=== PATIENT | female | born 1995 | race American Indian/Alaskan Native ===

== ENCOUNTER 2017-11-10 13:23 | Emergency (ER) | payer MEDICAID ==
[2017-11-10 13:53] VITALS: BP 94/55
[2017-11-10] MEDS ORDERED: BENADRYL PO ONE (17:50)
[2017-11-10] MEDS ORDERED: FIORICET PO ONE (17:50)
[2017-11-10] MEDS ORDERED: REGLAN PO ONE (17:50)
--- NOTE | 2017-11-10 17:54 | Emergency Department Report ---
Blank Doc - Documentation Documentation: Patient presents to the emergency department with multiple complaints. Patient states that she's had abdominal pain for the last couple days and points to epigastric region for location. She denies anything making the pain better or worse. She also complains of a diffuse headache and states she has a history of migraines and this is not the worse headache of her life. She also complains of her asthma flaring up. Patient is mildly tender to palpation epigastric region she does have plaque-like lesions along the creases of her elbows and wrists. Labs will be obtained and headache would be treated. Care will be turned over to the Mid level provider within the available for consultation
[2017-11-10 18:23] LABS: Basophils % (Auto) 0.6 % (0.0-1.8); Eosinophils # (Auto) 0.1 K/mm3 (0.0-0.4); Eosinophils % (Auto) 1.6 % (0.0-4.3); Hemoglobin 13.6 gm/dl (10.1-14.3); Lymphocytes # (Auto) 2.6 K/mm3 (1.2-5.4); Lymphocytes % (Auto) 47.1 % (13.4-35.0); Mean Corpuscular HGB Conc 33 % (30-34); Mean Corpuscular Hemoglobin 30 pg (28-32); Mean Corpuscular Volume 91 fl (79-97); Monocytes # (Auto) 0.5 K/mm3 (0.0-0.8); Monocytes % (Auto) 8.5 % (0.0-7.3); Platelet Count 215 K/mm3 (140-440); Red Blood Count 4.53 M/mm3 (3.65-5.03); Red Cell Distribution Width 12.9 % (13.2-15.2)
[2017-11-10 18:39] LABS: Alanine Aminotransferase 7 units/L (7-56); Albumin 4.5 g/dL (3.9-5); BUN/Creatinine Ratio 14; Blood Urea Nitrogen 7 mg/dL (7-17); Calcium 9.2 mg/dL (8.4-10.2); Hemolysis Index 11; Lipase 34 units/L (13-60)
[2017-11-10 18:55] LABS: Bilirubin,Urine NEG (Negative); Blood,Urine NEG (Negative); Color,Urine Yellow (Yellow); Mucus,Urine 3+ /HPF; Protein,Urine <15 mg/dL mg/dL (Negative)
--- NOTE | 2017-11-10 20:25 | XRay Report ---
FINAL REPORT EXAM: XR ABD SERIES W CXR 1V HISTORY: ab pain history of Merina placement 5 years ago but was recently told was not present. TECHNIQUE: PA view of the chest and supine and erect views of the abdomen PRIORS: None. FINDINGS: Chest: Lungs are clear. Trachea is midline. Cardiac and mediastinal silhouettes are unremarkable. Bony structures are intact. Bilateral nipple bars are in place. Abdomen: The bowel gas pattern is nonspecific. No free air is identified. Soft tissues have no evidence for mass shadows or calcifications. There is a T-shaped IUD noted to the left of midline. There is a vertical midline linear metallic focus overlying the L5 vertebral body. This should be correlated with possibility of a navel piercing. The bony structures are intact. IMPRESSION: 1. No acute cardiopulmonary process seen. 2. Nonspecific, nonobstructive bowel gas pattern with no acute process noted. 3. T-shaped IUD is present in the left pelvis. 4. Vertical linear metallic focus overlying L5. Correlation with a history of navel piercing is needed for correlation. Otherwise this is abnormal 5.. Bilateral nipple bars in place.
--- NOTE | 2017-11-10 23:08 | Emergency Department Report ---
ED General Adult HPI - General Chief complaint: Skin Rash Stated complaint: ECZEMA/CHEST PAINS Time Seen by Provider: 11/10/17 17:32 Source: patient Mode of arrival: Ambulatory Limitations: No Limitations - History of Present Illness Initial comments: deb presents to the emergency department with multiple complaints. Patient states that she's had abdominal pain for the last couple days and points to epigastric region for location. She denies anything making the pain better or worse. She also complains of a diffuse headache and states she has a history of migraines and this is not the worse headache of her life. She also complains of her asthma flaring up. Patient is mildly tender to palpation epigastric region she does have plaque-like lesions along the creases of her elbows and wrists. Labs will be obtained and headache would be treated. Care will be turned over to the Mid level provider within the available for consultation Onset/Timin -: month(s) Location: abdomen Radiation: non-radiation Severity scale (0 -10): 3 Quality: aching Consistency: intermittent Improves with: movement Worsens with: none Associated Symptoms: denies: confusion, chest pain, cough, diaphoresis, fever/ chills, headaches, loss of appetite, malaise, nausea/vomiting, rash, seizure, shortness of breath, syncope, weakness Treatments Prior to Arrival: none - Related Data Previous Rx's Medication Instructions Recorded Last Taken Type Triamcinolone 0.1% [Kenalog 0.1% 1 applic TP TID #1 tube 10/31/14 Unknown Rx OINT] cephALEXin [Keflex] 500 mg PO Q6HR #40 capsule 10/31/14 Unknown Rx predniSONE [Deltasone] 20 mg PO BID #10 tab 10/31/14 Unknown Rx Sulfamethoxazole/Trimethoprim 1 each PO BID #20 tablet 01/01/15 Unknown Rx [Bactrim DS TAB] Naproxen [Naprosyn] 500 mg PO BID PRN #30 tablet 11/10/17 Unknown Rx Triamcinolone Acetonide 15 gm TP BID 14 Days #1 tube 11/10/17 Unknown Rx [Triamcinolone Acetonide Oint 0.5%] diphenhydrAMINE [Benadryl CAP] 25 mg PO Q8HR PRN #30 capsule 11/10/17 Unknown Rx predniSONE [Deltasone] 20 mg PO QDAY #5 tab 11/10/17 Unknown Rx Allergies Allergy/AdvReac Type Severity Reaction Status Date / Time No Known Allergies Allergy Verified 07/16/13 11:13 ED Review of Systems ROS: Stated complaint: ECZEMA/CHEST PAINS Other details as noted in HPI Constitutional: denies: chills, fever Eyes: denies: eye pain, eye discharge, vision change ENT: denies: ear pain, throat pain Respiratory: denies: cough, shortness of breath, wheezing Cardiovascular: denies: chest pain, palpitations Endocrine: no symptoms reported Gastrointestinal: denies: abdominal pain, nausea, vomiting, diarrhea Genitourinary: denies: urgency, dysuria, discharge Musculoskeletal: denies: back pain, joint swelling, arthralgia Skin: rash (bilat arms trunk ). denies: lesions Neurological: denies: headache, weakness, paresthesias Psychiatric: denies: anxiety, depression Hematological/Lymphatic: denies: easy bleeding, easy bruising ED Past Medical Hx - Past Medical History Hx Hypertension: No Hx Congestive Heart Failure: No Hx Diabetes: No Hx Deep Vein Thrombosis: No Hx Renal Disease: No Hx Sickle Cell Disease: No Hx Seizures: No Hx Asthma: No Hx COPD: No Hx HIV: No Additional medical history: Eczema - Surgical History Past Surgical History?: No - Social History Smoking Status: Never Smoker Substance Use Type: None - Medications Home Medications: Home Medications Medication Instructions Recorded Confirmed Last Taken Type Triamcinolone 0.1% [Kenalog 0.1% 1 applic TP TID #1 tube 10/31/14 Unknown Rx OINT] cephALEXin [Keflex] 500 mg PO Q6HR #40 capsule 10/31/14 Unknown Rx predniSONE [Deltasone] 20 mg PO BID #10 tab 10/31/14 Unknown Rx Sulfamethoxazole/Trimethoprim 1 each PO BID #20 tablet 01/01/15 Unknown Rx [Bactrim DS TAB] Naproxen [Naprosyn] 500 mg PO BID PRN #30 tablet 11/10/17 Unknown Rx Triamcinolone Acetonide 15 gm TP BID 14 Days #1 tube 11/10/17 Unknown Rx [Triamcinolone Acetonide Oint 0.5%] diphenhydrAMINE [Benadryl CAP] 25 mg PO Q8HR PRN #30 capsule 11/10/17 Unknown Rx predniSONE [Deltasone] 20 mg PO QDAY #5 tab 11/10/17 Unknown Rx ED Physical Exam - General Limitations: No Limitations General appearance: alert, in no apparent distress - Head Head exam: Present: atraumatic, normocephalic - Eye Eye exam: Present: normal appearance - ENT ENT exam: Present: mucous membranes moist - Neck Neck exam: Present: normal inspection - Respiratory Respiratory exam: Present: normal lung sounds bilaterally. Absent: respiratory distress - Cardiovascular Cardiovascular Exam: Present: regular rate - GI/Abdominal GI/Abdominal exam: Present: soft, normal bowel sounds. Absent: distended, tenderness, guarding, rebound, rigid, organomegaly, mass, bruit, pulsatile mass , hernia - Rectal Rectal exam: Present: deferred - Extremities Exam Extremities exam: Present: normal inspection - Back Exam Back exam: Present: normal inspection - Neurological Exam Neurological exam: Present: alert, oriented X3, CN II-XII intact, normal gait, reflexes normal - Psychiatric Psychiatric exam: Present: normal affect, normal mood - Skin Skin exam: Present: warm, dry, intact, normal color, rash (bilat arms trunk red raised smooth no drainage no fever no dry flakey ) ED Course Vital Signs 11/10/17 13:49 Temperature 97.7 F Pulse Rate 61 Respiratory 16 Rate Blood Pressure 94/55 O2 Sat by Pulse 96 Oximetry ED Medical Decision Making - Lab Data Result diagrams: 11/10/17 18:10 11/10/17 18:10 Laboratory Tests 11/10/17 11/10/17 11/10/17 18:10 18:10 18:10 WBC 5.4 RBC 4.53 Hgb 13.6 Hct 41.0 MCV 91 MCH 30 MCHC 33 RDW 12.9 L Plt Count 215 Lymph % (Auto) 47.1 H Blair % (Auto) 8.5 H Eos % (Auto) 1.6 Baso % (Auto) 0.6 Lymph # 2.6 Blair # 0.5 Eos # 0.1 Baso # 0.0 Seg Neutrophils % 42.2 Seg Neutrophils # 2.3 Sodium 141 Potassium 4.2 Chloride 104.8 Carbon Dioxide 25 Anion Gap 15 BUN 7 Creatinine 0.5 L Estimated GFR > 60 BUN/Creatinine Ratio 14 Glucose 101 H Calcium 9.2 Total Bilirubin 0.50 AST 18 ALT 7 Alkaline Phosphatase 65 Total Protein 8.2 Albumin 4.5 Albumin/Globulin Ratio 1.2 Lipase 34 HCG, Quant < 2 Urine Color Urine Turbidity Urine pH Ur Specific [place] Urine Protein Urine Glucose (UA) Urine Ketones Urine Blood Urine Nitrite Urine Bilirubin Urine Urobilinogen Ur Leukocyte Esterase Urine WBC (Auto) Urine RBC (Auto) U Epithel Cells (Auto) Urine Mucus 11/10/17 18:41 WBC RBC Hgb Hct MCV MCH MCHC RDW Plt Count Lymph % (Auto) Blair % (Auto) Eos % (Auto) Baso % (Auto) Lymph # Blair # Eos # Baso # Seg Neutrophils % Seg Neutrophils # Sodium Potassium Chloride Carbon Dioxide Anion Gap BUN Creatinine Estimated GFR BUN/Creatinine Ratio Glucose Calcium Total Bilirubin AST ALT Alkaline Phosphatase Total Protein Albumin Albumin/Globulin Ratio Lipase HCG, Quant Urine Color Yellow Urine Turbidity Slightly-cloudy Urine pH 6.0 Ur Specific [place] 1.023 Urine Protein <15 mg/dl Urine Glucose (UA) Neg Urine Ketones Neg Urine Blood Neg Urine Nitrite Neg Urine Bilirubin Neg Urine Urobilinogen 4.0 Ur Leukocyte Esterase Tr Urine WBC (Auto) 2.0 Urine RBC (Auto) 1.0 U Epithel Cells (Auto) 7.0 Urine Mucus 3+ - Radiology Data Radiology results: report reviewed, image reviewed No acute process seen nonspecific nonobstructive bowel gas pattern no acute process T-shaped IUD present in the left pelvis - Medical Decision Making IUD is confirmed and pelvis x-ray patient will follow up with [facility] in 2-3 days or sign secondary complaint eczema and prescribed triamcinolone ointment prednisone short burst Benadryl patient will follow up with PCP for this complaint patient is now FRANK 3 with no pain denies other complaint at this time will be DC'd home in stable condition Critical care attestation.: If time is entered above; I have spent that time in minutes in the direct care of this critically ill patient, excluding procedure time. ED Disposition Clinical Impression: IUD strings lost Qualifiers: Encounter type: initial encounter Qualified Code(s): T83.32XA - Displacement of intrauterine contraceptive device, initial encounter Eczema Qualifiers: Eczema type: unspecified Qualified Code(s): L30.9 - Dermatitis, unspecified Disposition: DC-01 TO HOME OR SELFCARE Is pt being admited?: No Does the pt Need Aspirin: No Condition: Good Instructions: Eczema (ED) Prescriptions: diphenhydrAMINE [Benadryl CAP] 25 mg PO Q8HR PRN #30 capsule PRN Reason: Itching Naproxen [Naprosyn] 500 mg PO BID PRN #30 tablet PRN Reason: pain predniSONE [Deltasone] 20 mg PO QDAY #5 tab Triamcinolone Acetonide [Triamcinolone Acetonide Oint 0.5%] 15 gm TP BID 14 Days #1 tube Referrals: PRISCILA CROCKETT MD [Staff Physician] - 3-5 Days [facility] [Outside] - 3-5 Days Forms: Work/School Release Form(ED) Time of Disposition: 23:16
== END 2017-11-10 23:19 | disposition home or self-care (01) ==
LOC: ED 13:23
DX: T83.32XA Displacement of intrauterine contraceptive device, initial encounter (principal); L30.9 Dermatitis, unspecified; Z79.899 Other long term (current) drug therapy
CPT/HCPCS: 36415; 74022; 80053; 81001; 83690; 84702; 85025; 93005; 93010

== ENCOUNTER 2018-11-30 10:57 | Day surgery (SDC) | payer MEDICAID ==
[2018-11-30] MEDS ORDERED: LACTATED RINGERS 1,000 ML IV SCH (11:37)
--- NOTE | 2018-11-30 13:43 | Anesthesia Consultation ---
Anesthesia Consult and Med Hx Date of service: 11/30/18 - Airway Anesthetic Teeth Evaluation: Good ROM Head & Neck: Adequate Mental/Hyoid Distance: Adequate Mallampati Class: Class II Intubation Access Assessment: Good - Pulmonary Exam CTA: Yes - Cardiac Exam Cardiac Exam: RRR - Pre-Operative Health Status ASA Pre-Surgery Classification: ASA1 Proposed Anesthetic Plan: General - Central Nervous System Hx Neuromuscular Disorder: No Hx Seizures: No Hx Psychiatric Problems: No - Other Systems Hx Cancer: No
--- NOTE | 2018-11-30 13:44 | Anesthesia Day of Surgery ---
Anesthesia Day of Surgery - Day of Surgery Patient Examined: Yes Patient H&P Reviewed: Yes Patient is NPO: Yes
[2018-11-30] MEDS ORDERED: BUPIVACAINE/PF (0.5%) 5 MG/1 ML 30 ML VIAL INFILTRATI ONE ×2 (13:49→15:33)
[2018-11-30] MEDS ORDERED: MIDAZOLAM 2 MG/2 ML INJ IV NR (14:00)
[2018-11-30] MEDS ORDERED: fentaNYL 100 MCG/2 ML INJ ONE (14:06)
[2018-11-30] MEDS ORDERED: LIDOCAINE MPF (2%) 20 MG/1 ML VIAL 5 ML ONE (14:06)
[2018-11-30] MEDS ORDERED: ONDANSETRON 4 MG/2 ML INJ ONE (14:06)
[2018-11-30] MEDS ORDERED: dexAMETHasone 20 MG/5 ML VIAL ONE (14:06)
[2018-11-30] MEDS ORDERED: ROCURONIUM 50 MG/5 ML INJ IV ONE ×2 (14:06→14:08)
[2018-11-30] MEDS ORDERED: PROPOFOL 200 MG/20 ML VIAL IV ONE (14:07)
[2018-11-30] MEDS ORDERED: KETAMINE/STERILE WATER 50 MG/ML SYRINGE ONE (14:07)
[2018-11-30] MEDS: HYDROmorphone 1 MG/1 ML INJ IV PRN ×2 (16:35→16:40)
--- NOTE | 2018-11-30 17:09 | Operative Report ---
Operative Report Operative Report: Preoperative diagnosis: Mirena IUD in the pelvis. Postoperative diagnosis: Same as preoperative diagnosis. Procedure: 1. Diagnostic laparoscopy. 2. Removal of IUD from the pelvis. Surgeon: Dr. Griffin [employer] Originator: none Anesthesia: general EBL: negligible IVF: RL 1 liter Complications: none Intraoperative findings: 1. Normal uterus, fallopian tubes and ovaries bilaterally. 2. Mirena IUD in the left pelvis mildly adherent to the left tubal fimbriae. Procedure details: Risks, benefits, and alternatives of the procedure were discussed in detail with the patient which included but not limited to risk of infection, hemorrhage requiring blood transfusion, injury to the bowel or bladder and blood vessels, risks of having the procedure converted to an exploratory laparotomy. The patient expressed understanding, her questions were answered, and she gave informed consent. The patient was taken to the operating room with an IV fluid using Ringer's lactate. In the operating room, she was placed in a dorsal supine position and given general anesthesia. She was then placed on the stirrups in a dorsal lithotomy position. The perineum, vagina, cervix, and abdomen were washed and she was prepared and draped in usual sterile fashion. A bivalve speculum was placed in the vagina and the anterior lip of the cervix was grasped with a single-tooth tenaculum. A HUMI uterine manipulator was advanced into the uterine cavity to provide a means of manipulating the uterus and the procedure. The speculum and tenaculum were then removed. Attention was then turned to the patient's abdomen where a 5 mm skin incision was made in the infraumbilical fold. The Veress needle was introduced into the peritoneal cavity while tenting the abdominal wall. Intraperitoneal placement was confirmed by using a water-filled syringe and by noticing a drop in the intra-abdominal pressure with CO2 gas insufflation. The trocar and sleeves were then advanced without difficulty into the abdomen where intraperitoneal placement was confirmed using laparoscope. Pneumoperitoneum was achieved with 3.5 L of CO2 gas. A second 5 mm skin incision was made in the left lower quadrant and a 5 mm trocar and sleeves were then advanced into the abdominal cavity under direct visualization with the laparoscope. A quick survey of the anatomy revealed a normal uterus, fallopian tubes, and ovaries bilaterally, and a Mirena IUD in the left pelvic region attached to the left fimbriae. No other adhesions or collection was seen in the pelvis. The IUD was removed from the abdominal cavity via the left port. Good hemostasis was confirmed. The ports were then opened to release to CO2 gas from the abdomen. The instruments were then removed. The ports were closed with 3.0 vicryl sutures. Steri-Strip and Tegaderm were placed. The HUMI uterine manipulator was then removed from the uterine cavity. The counts of laps, needles, sponges, and instruments were correct 2. The patient tolerated the procedure well. She was awakened from anesthesia and taken to the recovery room in a stable condition.
[2018-11-30 17:30] VITALS: BP 102/58
[2018-11-30] MEDS ORDERED: ONDANSETRON 4 MG/2 ML INJ IV ONE (19:00)
--- NOTE | 2018-11-30 21:36 | Post Anesthesia Evaluation ---
- Post Anesthesia Evaluation Patient Participated: Yes Airway Patent: Yes Stable Respiratory Function: Yes Nausea/Vomiting: No Temp > 96.8F: Yes Pain Manageable: Yes Adequeate Hydration: Yes Anesthesia Complications: No Block Receding Appropriately: Not Applicable Patient on Ventilator: No
== END 2018-11-30 18:50 | disposition home or self-care (01) ==
LOC: OR 10:57
PROVIDERS: ATTEND Obstetrics & Gynecology
DX: T83.32XA Displacement of intrauterine contraceptive device, initial encounter (principal); G43.909 Migraine, unspecified, not intractable, without status migrainosus; Z79.899 Other long term (current) drug therapy; Z98.890 Other specified postprocedural states; Y83.8 Other surgical procedures as the cause of abnormal reaction of the patient, or of later complication, without mention of misadventure at the time of the procedure
CPT/HCPCS: 49329; 81025; J1100; J1170; J2405; J2704; J3010; J7120

== ENCOUNTER 2019-11-18 04:03 | Emergency (ER) | payer MEDICAID ==
[2019-11-18 04:21] VITALS: BP 105/54
--- NOTE | 2019-11-18 08:41 | Emergency Department Report ---
ED ENT HPI - General Chief complaint: Earache Stated complaint: LEFT EAR INFECTION Time Seen by Provider: 11/18/19 08:21 Source: patient Mode of arrival: Ambulatory Limitations: No Limitations - History of Present Illness Initial comments: Patient is a 24-year-old female presents emergency room with complaints of left lower dental pain that began 3 days ago. Patient states that she also has left- sided ear pain and it hurts to touch the ear. She denies any drainage from the ear, fever, nausea, vomiting, diarrhea. She states that she did crack the left lower back molar approximately 9 months ago. Patient is currently 9 months , she denies any abdominal pain or vaginal bleeding, she states her [employer] is [employer]. She denies any past medical history. No allergies to medications. No recent antibiotics. - Related Data Previous Rx's Medication Instructions Recorded Last Taken Type Acetaminophen [Tylenol] 650 mg PO Q8HR PRN #14 capsule 11/18/19 Unknown Rx Neomycin/Polymyxin B/Hydrocort 4 drops QID 7 Days #1 drops.susp 11/18/19 Unknown Rx [Thktyypa-Ehmrtxwux-Tr Ear Susp] Penicillin Vk [Veetids TAB] 500 mg PO QID 7 Days #56 tablet 11/18/19 Unknown Rx Allergies Allergy/AdvReac Type Severity Reaction Status Date / Time No Known Allergies Allergy Verified 11/28/18 19:15 ED Dental HPI - General Chief complaint: Earache Stated complaint: LEFT EAR INFECTION Time Seen by Provider: 11/18/19 08:21 Source: patient Mode of arrival: Ambulatory Limitations: No Limitations - Related Data Previous Rx's Medication Instructions Recorded Last Taken Type Acetaminophen [Tylenol] 650 mg PO Q8HR PRN #14 capsule 11/18/19 Unknown Rx Neomycin/Polymyxin B/Hydrocort 4 drops QID 7 Days #1 drops.susp 11/18/19 Unknown Rx [Gzxwqemi-Ejygzmkgk-Im Ear Susp] Penicillin Vk [Veetids TAB] 500 mg PO QID 7 Days #56 tablet 11/18/19 Unknown Rx Allergies Allergy/AdvReac Type Severity Reaction Status Date / Time No Known Allergies Allergy Verified 11/28/18 19:15 ED Review of Systems ROS: Stated complaint: LEFT EAR INFECTION Other details as noted in HPI Comment: All other systems reviewed and negative ED Past Medical Hx - Past Medical History Previous Medical History?: Yes Hx Headaches / Migraines: Yes (Migraines) Hx Seizures: No Additional medical history: Eczema - Surgical History Past Surgical History?: No - Social History Smoking Status: Never Smoker Substance Use Type: None - Medications Home Medications: Home Medications Medication Instructions Recorded Confirmed Last Taken Type Acetaminophen [Tylenol] 650 mg PO Q8HR PRN #14 capsule 11/18/19 Unknown Rx Neomycin/Polymyxin B/Hydrocort 4 drops QID 7 Days #1 drops.susp 11/18/19 Unknown Rx [Mereszgm-Dmwpaxong-Tz Ear Susp] Penicillin Vk [Veetids TAB] 500 mg PO QID 7 Days #56 tablet 11/18/19 Unknown Rx ED Physical Exam - General Limitations: No Limitations General appearance: alert, in no apparent distress - Head Head exam: Present: atraumatic, normocephalic - Eye Eye exam: Present: normal appearance - ENT ENT exam: Present: normal orophraynx, mucous membranes moist, other (right TM and canal are normal, left TM is normal and intact, left ear canal is erythematous with scaling, no drainage present, she does have pain with tug test, there is a partially cracked tooth present to the left lower back molar, there is erythema and mild edema present to the gumline, no obvious fluctuance, uvula is midline, no uvular edema or deviation, no tongue elevation, no muffled voice) - Neurological Exam Neurological exam: Present: alert, oriented X3 - Psychiatric Psychiatric exam: Present: normal affect, normal mood - Skin Skin exam: Present: warm, dry ED Course Vital Signs 11/18/19 04:16 Temperature 97.9 F Pulse Rate 97 H Respiratory 18 Rate Blood Pressure 105/54 O2 Sat by Pulse 95 Oximetry ED Medical Decision Making - Medical Decision Making Patient is a 24-year-old female presents emergency room with complaints of left lower dental pain that began 3 days ago. Patient states that she also has left- sided ear pain and it hurts to touch the ear. She denies any drainage from the ear, fever, nausea, vomiting, diarrhea. She states that she did crack the left lower back molar approximately 9 months ago. Patient is currently 9 months , she denies any abdominal pain or vaginal bleeding, she states her [employer] is [employer]. She denies any past medical history. No allergies to medications. No recent antibiotics. vitals are normal. on exam: right TM and canal are normal, left TM is normal and intact, left ear canal is erythematous with scaling, no drainage present, she does have pain with tug test, there is a partially cracked tooth present to the left lower back molar, there is erythema and mild edema present to the gumline, no obvious fluctuance, uvula is midline, no uvular edema or deviation, no tongue elevation, no muffled voice. examination consistent with otitis externa and infected dental caries, no signs of obvious dental abscess at this time. pt given abx ear drops, tylenol, and pencillin vk. advised pt please use medication as prescribed. Please follow-up with your primary care doctor for reexamination. Please follow-up with a dentist. Return to emergency room for any new or worsening symptoms. - Differential Diagnosis otitis externa, otitis media, dental caries, infected caries, dental absces Critical care attestation.: If time is entered above; I have spent that time in minutes in the direct care of this critically ill patient, excluding procedure time. ED Disposition Clinical Impression: Infected dental caries, Cracked tooth Otitis externa Qualifiers: Otitis externa type: unspecified type Chronicity: acute Laterality: left Qualified Code(s): H60.502 - Unspecified acute noninfective otitis externa, left ear Disposition: TO HOME OR SELFCARE Is pt being admited?: No Does the pt Need Aspirin: No Condition: Stable Instructions: Dental Caries (ED), Otitis Externa (ED) Additional Instructions: Please use medication as prescribed. Please follow-up with your primary care doctor for reexamination. Please follow-up with a dentist. Return to emergency room for any new or worsening symptoms. Prescriptions: Neomycin/Polymyxin B/Hydrocort [Teqgsdtg-Xkbzetorn-Zy Ear Susp] 4 drops QID 7 Days #1 drops.susp Acetaminophen [Tylenol] 650 mg PO Q8HR PRN #14 capsule PRN Reason: pain Penicillin Vk [Veetids TAB] 500 mg PO QID 7 Days #56 tablet Referrals: PRIMARY CARE,MD [Primary Care Provider] - 2-3 Days your, dentist [Other] - 2-3 Days Time of Disposition: 08:42 Print Language: ITALIAN
== END 2019-11-18 08:52 | disposition home or self-care (01) ==
LOC: ED 04:03
DX: O99.613 Diseases of the digestive system complicating pregnancy, third trimester (principal); K02.9 Dental caries, unspecified; O98.813 Other maternal infectious and parasitic diseases complicating pregnancy, third trimester; Z3A.40 40 weeks gestation of pregnancy; H60.8X2 Other otitis externa, left ear; G43.909 Migraine, unspecified, not intractable, without status migrainosus
CPT/HCPCS: 99282